=== PATIENT | male | born 2000 | race African-American/Black ===

== ENCOUNTER 2024-12-12 09:34 | Inpatient (IN) | payer MEDICAID, OTHER ==
[~2024-12-12] VITALS: Ht 167.6 cm; Wt 82.5 kg
--- NOTE | 2024-12-12 09:58 | ED.PDOC ---
History of Present Illness HPI Comments 24Y M presents to ED for chief complaint lt facial swelling/pain x4days. Pt state pain and swelling initially began on left side of mouth but now radiates to throat as well. No dental abscess noted. No other symptoms reported. Chief Complaint: Abscess Time Seen by MD: 09:39 Reviewed Notes: Nurses Notes, Medications, Allergies Information Source: Patient Mode of Arrival: Ambulatory Severity: Mild Timing: Days Duration: Since onset Past Medical History PAST MEDICAL HISTORY: Denies Surgical History: Denies all surgeries Family History Family History: Unknown Social History Smoker: Non-Smoker Alcohol: Denies ETOH Use Drugs: Denies Drug Use Lives In: Home Constitutional: denies: chills, diaphoresis, fatigue, fever, malaise, sweats, weakness, others EENTM: reports: mouth pain, mouth swelling (left mandible), throat pain; denies: blurred vision, double vision, ear bleeding, ear discharge, ear drainage, ear pain, ear ringing, eye pain, eye redness, hearing loss, nasal discharge, nose bleeding, nose congestion, nose pain, photophobia, tearing, throat swelling, voice changes, others Respiratory: denies: cough, hemoptysis, orthopnea, SOB at rest, shortness of breath, SOB with excertion, stridor, wheezing, others Cardiovascular: denies: chest pain, dizzy spells, diaphoresis, Dyspnea on exertion, edema, irregular heart beat, left arm pain, lightheadedness, palpitations, PND, syncope, others Gastrointestinal: denies: abdomen distended, abdominal pain, blood streaked bowels, constipated, diarrhea, dysphagia, difficulty swallowing, hematemesis, melena, nausea, poor appetite, poor fluid intake, rectal bleeding, rectal pain, vomiting, others Genitourinary: denies: burning, dysuria, flank pain, frequency, hematuria, incontinence, penile discharge, penile sore, pain, testicle pain, testicle swelling, urgency, others Neurological: denies: dizziness, fainting, headache, left sided numbness, left sided weakness, numbness, paresthesia, pre-existing deficit, right sided numbness, right sided weakness, seizure, speech problems, tingling, tremors, weakness, others Musculoskeletal: denies: back pain, gout, joint pain, joint swelling, muscle pain, muscle stiffness, neck pain, others Integumetry: denies: bruises, change in color, change in hair/nails, dryness, laceration, lesions, lumps, rash, wounds, others Allergic/Immunocompromised: denies: Difficulty Healing, Frequent Infections, Hives, Itching, others Hematologic/Lymphatic: denies: anemia, blood clots, easy bleeding, easy bruising, swollen glands, others Endocrine: denies: excessive hunger, excessive sweating, excessive thirst, excessive urination, flushing, intolerance to cold, intolerance to heat, unexplained weight gain, unexplained weight loss, others Psychiatric: denies: anxiety, bipolar disorder, depression, hopeless, panic disorder, schizophrenia, sleepless, suicidal, others All Other Systems: Reviewed and Negative Physical Exam General Appearance: No Apparent Distress, Normal HEENT: Pharynx Normal, TMs Normal, NOT DONE (left mandibular swelling, no dental abscess) Neck: Full Range of Motion, Non-Tender, Normal, Normal Inspection Respiratory: Chest Non-Tender, Lungs Clear, No Accessory Muscle Use, No Respiratory Distress, Normal Breath Sounds Cardiovascular: No Edema, No JVD, No Murmur, No Gallop, Normal Peripheral Pulses, Regular Rate/Rhythm Breast Exam: Deferred Gastrointestinal: No Organomegaly, Non Tender, No Pulsatile Mass, Normal Bowel Sounds, Soft Genitalia: Deferred Pelvic: Deferred Rectal: Deferred Extremities: No calf tenderness, Normal capillary refill, Normal inspection, Normal range of motion, Non-tender, No pedal edema Musculoskeletal : Apperance: Normal Neurologic: Alert, roll repairer II-XII nml as Tested, No Motor Deficits, Normal Affect, Normal Mood, No Sensory Deficits Cerebellar Function: Normal Reflexes: Normal Skin: Dry, Normal Color, Warm Lymphatic: No Adenopathy Was a procedure done? Was a procedure done?: No Differential Dx Considerations may include: facial cellulitis, facial abscess, dental abscess, parotid mass, parotiditis, mandibular fracture, contusion, antonio's angina X-Ray, Labs, Meds, VS Vital Signs Date Time Temp Pulse Resp B/P (MAP) Pulse Ox O2 Delivery O2 Flow Rate FiO2 12/12/24 10:35 73 16 98 Room Air 12/12/24 10:35 99.6 73 16 146/92 (110) 98 99.6 12/12/24 09:50 99.6 73 16 146/92 (110) 98 Lab Test 1/18/25 09:54 Range/Units White Blood Count 5.8 4.4-10.8 10^3/uL Red Blood Count 4.66 4.5-5.90 10^6/uL Hemoglobin 15.6 13.5-17.5 g/dL Hematocrit 45.8 41.0-53.0 % Mean Corpuscular Volume 98.1 80.0-100.0 fL Mean Corpuscular Hemoglobin 33.4 H 28.0-32.0 pg Mean Corpuscular Hemoglobin Concent 34.1 32.0-36.0 g/dL Red Cell Distribution Width 12.1 11.8-14.3 % Platelet Count 347 140-450 10^3/uL Mean Platelet Volume 7.4 6.9-10.8 fL Neutrophils (%) (Auto) 61.8 37.0-80.0 % Lymphocytes (%) (Auto) 22.8 10.0-50.0 % Monocytes (%) (Auto) 12.0 0.0-12.0 % Eosinophils (%) (Auto) 1.9 0.0-7.0 % Basophils (%) (Auto) 1.5 0.0-2.0 % Neutrophils # (Auto) 3.6 1.6-8.6 10 ^3/uL Lymphocytes # (Auto) 1.3 0.4-5.4 10 ^3/uL Monocytes # (Auto) 0.7 0-1.3 10 ^3/uL Eosinophils # (Auto) 0.1 0-0.8 10 ^3/uL Basophils # (Auto) 0.1 0-0.2 10 ^3/uL Nucleated Red Blood Cells 0.3 % Sodium Level 138 136-145 mmol/L Potassium Level 3.8 3.5-5.1 mmol/L Chloride Level 107 98-107 mmol/L Carbon Dioxide Level 26 20-31 mmol/L Anion Gap 5 5-15 Blood Urea Nitrogen 9 9-23 mg/dL Creatinine 1.26 0.700-1.30 mg/dL Glomerular Filtration Rate Calc 82 >90 mL/min BUN/Creatinine Ratio 7.1 L 10.0-20.0 Serum Glucose 88 74-106 mg/dL Calcium Level 10.0 8.7-10.4 mg/dL Current Medications Medications (Trade) Dose Ordered Sig/Emigdio Route Start Time Stop Time Status Last Admin Ceftriaxone Sodium (Rocephin) 1,000 mg ONCE ONCE IM 12/12/24 10:00 12/12/24 10:01 DC 12/12/24 10:09 Ketorolac Tromethamine (Toradol Injection) 15 mg ONCE ONCE IM 12/12/24 10:00 12/12/24 10:01 DC 12/12/24 10:08 [place] [id number] Ph: [phone] DIAGNOSTIC IMAGING Diagnostic Imaging Report : [id number] Signed PATIENT: ANN MARIE GRAFF ACCT: [id number] UNIT: [id number] : 2000 LOC: ER ROOM / BED: / AGE / SEX: 24 / M ADM STATUS: REG ER SERVICE 6 ORDERING PHYSICIAN: RODERICK PRETTY MD PROCEDURE(s): FAC2C - MAXILLOFACIAL WITHOUT REASON: R/O ABCESS ORDER NUMBER(s): [id number], ACCESSION NUMBER(s): [id number] CT MAXILLOFACIAL WITHOUT INDICATION: R/O ABCESS EXAM DATE: 12/12/2024 09:54 AM COMPARISON: None RADIATION DOSE: CTDIvol: 66.95 mGy, DLP: 1580.87 mGy*cm PROCEDURE: CT axial images of the maxillofacial bones are obtained without contrast All CT scans at this medical facility are performed using dose modulation techniques as appropriate to a performed exam including the following: Automated exposure control was utilized; adjustment of the MA and/or KV according to pa tient size; and use of iterative reconstruction technique. FINDINGS: The mastoids are well pneumatized. The paranasal sinuses are well pneumatized. There is no facial region fracture. The orbits and retrobulbar spaces are unremarkable. There is left perimandibular region soft tissue edema and stranding. There is associated extensive left perimandibular edema but no loculated fluid collection identified. Enlarged left submandibular lymph nodes measuring up to 1.9 cm. Submental lymph node measuring 11 mm. This may be odontogenic in origin arising from the left 1st mandibular molar tooth, which demonstrates periapical lucency. Left cervical jugulodigastric lymph nodes measuring up to 1.4 cm. IMPRESSION: 1. Extensive left perimandibular edema and soft tissue stranding, likely representing cellulitis changes. The associated edema could represent phlegmon. No definitive loculated collection identified at this time. This may be odontogenic in origin, arising from the left mandibular 1st molar tooth. 2. Associated neck lymphadenopathy ATED BY: MARIANA ROBERTSON MD DICTATED DATE/TIME: 12/12/24 1019 SIGNED BY: MARIANA ROBERTSON MD SIGNED DATE/TIME: 12/12/24 1019 CC: Time of 1ST Reevaluation: 10:09 Reevaluation 1ST: Unchanged Time of 2ND Reevaluation: 11:08 Reevaluation 2ND: Improved Patient Education/Counseling: Diagnosis, Treatment, Prognosis, Need For Follow Up Family Education/Counseling: No Family Present Additional Information I reviewed the following notes from patient's past medical encounters: None The following tests were ordered, and results were reviewed by me: CBC, BMP, CT maxillofacial WO contrast Additional Information was gathered from interviewing the following independent historians: None I reviewed and agreed with the following test results read by other providers: CT maxillofacial WO contrast I discussed treatment and results with medical personnel. Departure 1 Departure Time of Disposition: 11:08 Impression: Primary Impression: Facial abscess Disposition: ADMITTED INPATIENT Admit to: Med Surg Condition: Stable Discharged With: Self Critical Care Note Critical Care Time?: Yes (55 min-critical care time only) Critical care comment: Due to concerns for patients condition deteriorating, the care required my highest level of attention and readiness to intervene. I assessed the patient, reviewed the medical records, ordered the appropriate tests and treatments, then reassessed for results and responsiveness. I communicated with medical personnel and consultants and formulated a plan of care. Total critical care time excludes any procedures Stability Stability form required: No Heart Score Heart Score: Heart Score Response (Comments) Value History N/A 0 EKG N/A 0 Age N/A 0 Risk Factors N/A 0 Troponin N/A 0 Total 0 I personally scribed for RODERICK PRETTY MD ([email or web address]) on 12/12/24 at 09:57. Electronically submitted by Nikkie Juárez ([email or web address]). I personally scribed for RODERICK PRETTY MD ([email or web address]) on 12/12/24 at 10:23. Electro nically submitted by Nikkie Juárez ([email or web address]). RODERICK PRETTY MD Dec 12, 2024 09:57
[2024-12-12] MEDS: KETOROLAC TROMETH 30 MG/ML 1ML VIAL IM ONE (10:08)
[2024-12-12] MEDS: cefTRIAXone SOD 1,000 MG VL IM ONE (10:09)
[2024-12-12 10:18] LABS: Chloride 107 mmol/L (98-107); Potassium 3.8 mmol/L (3.5-5.1); Sodium 138 mmol/L (136-145)
[2024-12-12 10:19] LABS: Anion Gap 5 (5-15); Carbon Dioxide 26 mmol/L (20-31)
--- NOTE | 2024-12-12 10:21 | DVH ---
CT MAXILLOFACIAL WITHOUT INDICATION: R/O ABCESS EXAM DATE: 12/12/2024 09:54 AM COMPARISON: None RADIATION DOSE: CTDIvol: 66.95 mGy, DLP: 1580.87 mGy*cm PROCEDURE: CT axial images of the maxillofacial bones are obtained without contrast All CT scans at this medical facility are performed using dose modulation techniques as appropriate t o a performed exam including the following: Automated exposure control was utilized; adjustment of th e MA and/or KV according to patient size; and use of iterative reconstruction technique. FINDINGS: The mastoids are well pneumatized. The paranasal sinuses are well pneumatized. There is no facial region fracture. The orbits and retrobulbar spaces are unremarkable. There is left perimandibular region soft tissue edema and stranding. There is associated extensive le ft perimandibular edema but no loculated fluid collection identified. Enlarged left submandibular lym ph nodes measuring up to 1.9 cm. Submental lymph node measuring 11 mm. This may be odontogenic in [place] gin arising from the left 1st mandibular molar tooth, which demonstrates periapical lucency. Left cervical jugulodigastric lymph nodes measuring up to 1.4 cm. IMPRESSION: 1. Extensive left perimandibular edema and soft tissue stranding, likely representing cellulitis cerna ges. The associated edema could represent phlegmon. No definitive loculated collection identified a t this time. This may be odontogenic in origin, arising from the left mandibular 1st molar tooth. 2. Associated neck lymphadenopathy
[2024-12-12 10:24] LABS: Basophils # (auto) 0.1 10 ^3/uL (0-0.2); Basophils % (auto) 1.5 % (0.0-2.0); Eosinophils # (auto) 0.1 10 ^3/uL (0-0.8); Eosinophils % (auto) 1.9 % (0.0-7.0); Glucose 88 mg/dL (74-106); Hematocrit 45.8 % (41.0-53.0); Hemoglobin 15.6 g/dL (13.5-17.5); Lymphocytes # (auto) 1.3 10 ^3/uL (0.4-5.4); Lymphocytes % (auto) 22.8 % (10.0-50.0); Mean Corpuscular Hemoglobin 33.4 pg (28.0-32.0); Mean Corpuscular Hgb Conc. 34.1 g/dL (32.0-36.0); Mean Corpuscular Volume 98.1 fL (80.0-100.0); Monocytes # (auto) 0.7 10 ^3/uL (0-1.3); Neutrophils # (auto) 3.6 10 ^3/uL (1.6-8.6); Neutrophils % (auto) 61.8 % (37.0-80.0); Nucleated Red Blood Cells % 0.3 %; Platelet Count (auto) 347 10^3/uL (140-450); Red Blood Cells 4.66 10^6/uL (4.5-5.90); Red Cell Distribution Width 12.1 % (11.8-14.3); White Blood Cell 5.8 10^3/uL (4.4-10.8)
[2024-12-12 10:25] LABS: BUN/Creatinine Ratio 7.1 (10.0-20.0)
[2024-12-12 10:31] LABS: Blood Urea Nitrogen 9 mg/dL (9-23)
[2024-12-12] MEDS ORDERED: ACETAMINOPHEN 325 MG TAB PO PRN (11:45)
[2024-12-12] MEDS ORDERED: VANCOMYCIN PER PHARMACY 0 MG IV SCH (11:45)
--- NOTE | 2024-12-12 12:32 | DVHHP2 ---
History of Present Illness Reason for Visit: Left-sided facial swelling History of Present Illness Lauren Francois is a 24-year-old male with no past medical history who presents to the ED for left-sided facial jaw swelling and throat pain x2 days. Patient reports that he went 2 weeks ago to his dentist was told that he needed to get a root canal but unable to proceed due to insurance issues. Patient states that there is mild throat pain but notice his left side face and jaw was swollen today. Patient denies any tooth pain, denies chest pain, shortness of breath, fever, chills, lightheadedness, dizziness, weakness, abdominal pain, nausea, vomiting, and diarrhea Past Surgical History: None Family History: None Smoke: No ALCOHOL: none Drugs: None Lives: Alone Domestic Violence: Neg Review of Systems Constitutional: No: Fever, Chills, Sweats, Weakness, Malaise, Other Eyes: No: Pain, Vision change, Conjunctivae inflammation, Eyelid inflammation, Other, Redness ENT: Throat pain; No: Ear pain, Ear discharge, Nose pain, Nose discharge, Nose congestion, Mouth pain, Mouth swelling, Throat swelling, Other Respiratory: No: Cough, Dry, Shortness of breath, SOB with excertion, Wheezing, Hemoptysis, Pleuritic Pain, Sputum, Wheezing, Other Cardiovascular: No: Chest Pain, Palpitations, Orthopnea, Paroxysmal Noc. Dyspnea, Edema, Lt Headedness, Other Gastrointestinal: No: Nausea, Vomiting, Abdominal Pain, Diarrhea, Constipation, Melena, Hematochezia, Other Genitourinary: No Dysuria, No Frequency, No Incontinence, No Hematuria, No R etention, No Other Musculoskeletal: No: other, neck pain, shoulder pain, arm pain, back pain, hand pain, leg pain, foot pain Skin: Other (Left-sided facial swelling); No: Rash, Lesions, Jaundice, Bruising Neurological: No: Weakness, Numbness, Incoordination, Change in speech, Confusion, Seizures, Other Allergies: Coded Allergies: NO KNOWN ALLERGIES (Unverified , 12/12/24) Exam Vital Signs Vital Signs Date Time Temp Pulse Resp B/P (MAP) Pulse Ox O2 Delivery O2 Flow Rate FiO2 12/12/24 10:35 73 16 98 Room Air 12/12/24 10:35 99.6 146/92 (110) 99.6 General Appearance: Alert, Oriented X3, Cooperative, No acute distress HEENT: Atraumatic, PERRLA, EOMI, Mucous membr. moist/pink Respiratory: Clear to auscultation, Normal air movement Cardiovascular: Regular rate, Normal S1, Normal S2, No murmurs Abdominal: Normal bowel sounds, Soft, No tenderness, No hepatospenomegaly, No masses Extremities: No clubbing, No cyanosis, No edema, Normal pulses, No tenderness/swelling Skin: No rashes Neuro: Normal gait, Strength at 5/5 X4 ext, Normal tone, Sensation intact Psych/Mental Status: Mental status NL, Mood NL Labs/Xrays Labs Test 12/12/24 09:54 Range/Units White Blood Count 5.8 4.4-10.8 10^3/uL Red Blood Count 4.66 4.5-5.90 10^6/uL Hemoglobin 15.6 13.5-17.5 g/dL Hematocrit 45.8 41.0-53.0 % Mean Corpuscular Volume 98.1 80.0-100.0 fL Mean Corpuscular Hemoglobin 33.4 H 28.0-32.0 pg Mean Corpuscular Hemoglobin Concent 34.1 32.0-36.0 g/dL Red Cell Distribution Width 12.1 11.8-14.3 % Platelet Count 347 140-450 10^3/uL Mean Platelet Volume 7.4 6.9-10.8 fL Neutrophils (%) (Auto) 61.8 37.0-80.0 % Lymphocytes (%) (Auto) 22.8 10.0-50.0 % Monocytes (%) (Auto) 12.0 0.0-12.0 % Eosinophils (%) (Auto) 1.9 0.0-7.0 % Basophils (%) (Auto) 1.5 0.0-2.0 % Neutrophils # (Auto) 3.6 1.6-8.6 10 ^3/uL Lymphocytes # (Auto) 1.3 0.4-5.4 10 ^3/uL Monocytes # (Auto) 0.7 0-1.3 10 ^3/uL Eosinophils # (Auto) 0.1 0-0.8 10 ^3/uL Basophils # (Auto) 0.1 0-0.2 10 ^3/uL Nucleated Red Blood Cells 0.3 % Sodium Level 138 136-145 mmol/L Potassium Level 3.8 3.5-5.1 mmol/L Chloride Level 107 98-107 mmol/L Carbon Dioxide Level 26 20-31 mmol/L Anion Gap 5 5-15 Blood Urea Nitrogen 9 9-23 mg/dL Creatinine 1.26 0.700-1.30 mg/dL Glomerular Filtration Rate Calc 82 >90 mL/min BUN/Creatinine Ratio 7.1 L 10.0-20.0 Serum Glucose 88 74-106 mg/dL Calcium Level 10.0 8.7-10.4 mg/dL CT MAXILLOFACIAL WITHOUT INDICATION: R/O ABCESS EXAM DATE: 12/12/2024 09:54 AM COMPARISON: None RADIATION DOSE: CTDIvol: 66.95 mGy, DLP: 1580.87 mGy*cm PROCEDURE: CT axial images of the maxillofacial bones are obtained without contrast All CT scans at this medical facility are performed using dose modulation techniques as appropriate to a performed exam including the following: Automated exposure control was utilized; adjustment of the MA and/or KV according to patient size; and use of iterative reconstruction technique. FINDINGS: The mastoids are well pneumatized. The paranasal sinuses are well pneumatized. There is no facial region fracture. The orbits and retrobulbar spaces are unremarkable. There is left perimandibular region soft tissue edema and stranding. There is associated extensive left perimandibular edema but no loculated fluid collection identified. Enlarged left submandibular lymph nodes measuring up to 1.9 cm. Submental lymph node measuring 11 mm. This may be odontogenic in origin arising from the left 1st mandibular molar tooth, which demonstrates periapical lucency. Left cervical jugulodigastric lymph nodes measuring up to 1.4 cm. IMPRESSION: 1. Extensive left perimandibular edema and soft tissue stranding, likely representing cellulitis changes. The associated edema could represent phlegmon. No definitive loculated collection identified at this time. This may be odo ntogenic in origin, arising from the left mandibular 1st molar tooth. 2. Associated neck lymphadenopathy Exam: US SOFT TISSUE NECK Clinical History: Left neck swelling Comparison: None Technique: Targeted sonographic evaluation of the soft tissues of the left neck was obtained utilizing grayscale and color Doppler imaging. Findings/Impression: There is no evidence for drainable collection. There is no evidence for solid or cystic mass in the site. No vascular abnormalities identified at this site. Technically difficult exam. Assessment/Plan Assessment/Plan Assessment/Plan: Localized swelling on the face likely due to Tooth abscess Left side Neck lymphadenopathy Left perimandibular edema Lab Pain management IV antibiotics-ceftriaxone+ vancomycin A.m. labs CT maxillofacial Ultrasound neck Antiemetics FEN/PPX Diet Hep-Lock DVT prophylaxis not indicated patient ambulating PUD prophylaxis not indicated no history of GERD or GI bleed Discussed plan of care with patient and nurse No home medications reconciled Admit patient to [facility] surge Plan discussed with: Patient My Orders Orders - FIORELLA SERRATO Procedure Category Date Status Time Ceftriaxone Ivpb PHA 12/13/24 Verified Rocephin 09:00 Vancomycin Per PHA 12/12/24 Verified Pharmacy 11:45 Admit ADMIT 12/12/24 Verified 11:33 Allergies STEVEN 12/12/24 Verified 11:33 Code Status CODE 12/12/24 Verified 11:33 Hydrocodone-Acet PHA 12/12/24 Verified 5/325mg Tab ([place] 11:45 Ondansetron Hcl PHA 12/12/24 Verified (Zofran) 11:45 Complete Blood Count LAB 12/13/24 Verified 04:00 Comprehensive LAB 12/13/24 Verified Metabolic Panel 04:00 Cardiac DIET 12/12/24 Verified Diet-2gna,Lofat,Lochol Lunch Acetaminophen Tablet PHA 12/12/24 Verified (Tylenol Tablet) 11:45 Morphine Sulfate PHA 12/12/24 Verified Injection 11:45 Soft Tissue Neck US 12/12/24 Verified 11:33 Date of Service: Dec 12, 2024 Billing Provider: FIORELLA SERRATO Common Visit Codes: [id number] INP/OBS CARE (HIGH) FIORELLA SERRATO Dec 12, 2024 12:32
--- NOTE | 2024-12-12 12:57 | DVH ---
Exam: US SOFT TISSUE NECK Clinical History: Left neck swelling Comparison: None Technique: Targeted sonographic evaluation of the soft tissues of the left neck was obtained utilizing grayscal e and color Doppler imaging. Findings/Impression: There is no evidence for drainable collection. There is no evidence for solid or cystic mass in the site. No vascular abnormalities identified at this site. Technically difficult exam.
[2024-12-12 14:40] VITALS: PULSE 74; RESP 18; O2SAT 98
[2024-12-12] MEDS: VANCOMYCIN 1.25GM/250ML 250 ML IV SCH (14:41)
[2024-12-12] MEDS: ONDANSETRON HCL 4 MG/2 ML VIAL IV PRN (14:44)
[2024-12-12] MEDS: MORPHINE SULFATE INJ 2 MG/ml SYRG IV PRN (14:45)
[2024-12-12] MEDS: HYDROcodone-ACET 5/325MG TAB PO ONE (15:26)
[2024-12-12] MEDS: HYDROmorphone HCL 2 MG/ML VL/or syr IV ONE (17:44)
[2024-12-12] MEDS: HYDROcodone-ACET 5/325MG TAB PO PRN (21:44)
[2024-12-13 05:09] LABS: Eosinophils # (auto) 0.1 10 ^3/uL (0-0.8); Hemoglobin 15.3 g/dL (13.5-17.5); Mean Corpuscular Hemoglobin 34.2 pg (28.0-32.0); Mean Corpuscular Hgb Conc. 35.4 g/dL (32.0-36.0); Monocytes # (auto) 0.9 10 ^3/uL (0-1.3); Nucleated Red Blood Cells % 0.1 %
[2024-12-13 05:12] LABS: Basophils # (auto) 0.1 10 ^3/uL (0-0.2); Basophils % (auto) 0.7 % (0.0-2.0); Eosinophils % (auto) 1.6 % (0.0-7.0); Hematocrit 43.1 % (41.0-53.0); Lymphocytes % (auto) 24.2 % (10.0-50.0); Mean Corpuscular Volume 96.5 fL (80.0-100.0); Monocytes % (auto) 10.8 % (0.0-12.0); Neutrophils # (auto) 5.1 10 ^3/uL (1.6-8.6); Neutrophils % (auto) 62.7 % (37.0-80.0); Platelet Count (auto) 356 10^3/uL (140-450); Red Blood Cells 4.47 10^6/uL (4.5-5.90); Red Cell Distribution Width 12.4 % (11.8-14.3); White Blood Cell 8.2 10^3/uL (4.4-10.8)
[2024-12-13 05:26] LABS: Alanine Aminotransferase 13 U/L (7-40); Albumin 4.4 g/dL (3.2-4.8); Alkaline Phosphatase 64 U/L (46-116); Anion Gap 10 (5-15); Carbon Dioxide 25 mmol/L (20-31); Chloride 106 mmol/L (98-107); Glucose 82 mg/dL (74-106); Potassium 3.7 mmol/L (3.5-5.1); Sodium 141 mmol/L (136-145)
[2024-12-13 05:27] LABS: Bilirubin, Total 0.7 mg/dL (0.2-1.0)
[2024-12-13 05:53] LABS: Aspartate Aminotransferase 13 U/L (13-40); Blood Urea Nitrogen 7 mg/dL (9-23)
[2024-12-13] MEDS: cefTRIAXone 1GM/50ML D5W 50 ML IV SCH (08:49)
[2024-12-13 09:00] VITALS: BP 110/74; PULSE 74; RESP 16; TEMP 98.7; O2SAT 95
[2024-12-13 09:45] VITALS: BP 111/70; PULSE 89; RESP 18; TEMP 98.3; O2SAT 98
[2024-12-13 13:00] VITALS: BP 111/67; PULSE 74; RESP 18; TEMP 98.4; O2SAT 97
--- NOTE | 2024-12-13 13:56 | DVHPN2 ---
Subjective The patient is seen and examined at bedside. The patient complained of tooth pain. But no fever or chill. Reviewed: Care Plan, H&P, Labs, Medications, Previous Orders, Radiology Changes from previous H/P or p: No Changes Eyes: No Pain, No Vision change, No Conjunctivae inflammation, No Eyelid inflammation, No Other, No Redness ENT: No Ear pain, No Ear discharge, No Nose pain, No Nose discharge, No Nose congestion, No Mouth pain, No Mouth swelling; Throat pain; No Throat swelling, No Other Cardiovascular: No Chest Pain, No Palpitations, No Orthopnea, No Paroxysmal Noc. Dyspnea, No Edema, No Lt Headedness, No Other Respiratory: No Cough, No Dry, No Shortness of breath, No SOB with excertion, No Wheezing, No Hemoptysis, No Pleuritic Pain, No Sputum, No Other Gastrointestinal: No Nausea, No Vomiting, No Abdominal Pain, No Diarrhea, No Constipation, No Melena, No Hematochezia, No Other Genitourinary: No Dysuria, No Frequency, No Incontinence, No Hematuria, No Retention, No Other Musculoskeletal: No other, No neck pain, No shoulder pain, No arm pain, No back pain, No hand pain, No leg pain, No foot pain Skin: No Rash, No Lesions, No Jaundice, No Bruising; Other (Left-sided facial swelling) Objective Vitals Vital Signs Date Time Temp Pulse Resp B/P (MAP) Pulse Ox O2 Delivery O2 Flow Rate FiO2 12/13/24 09:45 98.3 89 18 111/70 (84) 98 98.3 12/13/24 09:35 Room Air* 0 21 General Appearance: Alert, Oriented X3, Cooperative, No acute distress HEENT: Atraumatic, PERRLA, EOMI, Mucous membr. moist/pink, Other (Left upper tooth abscess with pain in the left neck) Neck: Supple Lungs: Clear to auscultation, Normal air movement Cardiovascular: Regular rate, Normal S1, Normal S2, No murmurs, Gallops, Rubs Abdomen: Normal bowel sounds, Soft, No tenderness Neuro: Strength at 5/5 X4 ext Psych/Mental Status: Mental status NL Medications Current Medications Medications Dose Ordered Sig/Emigdio Route Start Time Stop Time Status Last Admin Dose Admin Ceftriaxone Sodium 50 ml @ 100 mls/hr DAILY@09 IV 12/13/24 09:00 12/13/24 08:49 100 MLS/HR Vancomycin HCl 0 ml @ 0 mls/hr UD IV 12/12/24 11:45 Acetaminophen/ Hydrocodone Bitart 1 tab Q4HP PRN PO 12/12/24 11:45 12/13/24 10:40 1 TAB Ondansetron HCl 4 mg Q4HP PRN IV 12/12/24 11:45 12/13/24 01:27 4 MG Acetaminophen 650 mg Q6HP PRN PO 12/12/24 11:45 Morphine Sulfate 2 mg Q4HPRN PRN IV 12/12/24 11:45 12/13/24 01:28 2 MG Vancomycin HCl 250 ml @ 200 mls/hr Q12H IV 12/12/24 14:00 12/13/24 01:41 200 MLS/HR Laboratory Results Laboratory Tests 12/13/24 03:31 Chemistry Test 12/13/24 03:31 Albumin 4.4 g/dL (3.2-4.8) Calcium Level 10.0 mg/dL (8.7-10.4) Total Protein 7.0 g/dL (5.7-8.2) LFT Test 12/13/24 03:31 Alanine Aminotransferase (ALT) 13 U/L (7-40) Alkaline Phosphatase 64 U/L (46-116) Aspartate Amino Transferase (AST) 13 U/L (13-40) Total Bilirubin 0.7 mg/dL (0.2-1.0) Labs and/or images reviewed: Labs reviewed by me Assessment/Plan Assessment/Plan Localized left face swelling likely due to 1st molar tooth abscess Left side neck lymphadenopathy Left perimandibular edema and cellulitis with possible phlegmon Continuing current management with IV antibiotic vancomycin and Rocephin. Continuing with IV pain medication morphine and also [place] for pain control. Advised the patient to see a dentist as outpatient when patient gets discharge. This medical document was created using an electronic medical record system with [employer] direct computerized dictation system. Although this document has been carefully reviewed, there may still be some phonetic and typographical errors. These areas are purely typographical due to imperfections of the software programs, and do not reflect any compromise in the patient's medical care. Plan discussed with: Patient Date of Service: Dec 13, 2024 Billing Provider: CHANEL BELTRAN MD Common Visit Codes: [id number] INP/OBS CARE(HIGH) CHANEL BELTRAN MD Dec 13, 2024 13:56
[2024-12-13 16:56] VITALS: BP 130/69; PULSE 70; RESP 16; TEMP 98; O2SAT 97
[2024-12-13 20:00] VITALS: RESP 18; O2SAT 97
[2024-12-13 21:00] VITALS: BP 115/82; PULSE 82; RESP 17; TEMP 98.7; O2SAT 95
[2024-12-14 01:00] VITALS: BP 119/72; PULSE 73; RESP 18; TEMP 98.2; O2SAT 95
[2024-12-14] MEDS: MELATONIN 5 MG TAB PO ONE (03:49)
[2024-12-14 05:09] VITALS: BP 115/51; PULSE 69; RESP 18; TEMP 98; O2SAT 92
[2024-12-14 07:02] LABS: Basophils # (auto) 0.1 10 ^3/uL (0-0.2); Basophils % (auto) 1.2 % (0.0-2.0); Eosinophils # (auto) 0.1 10 ^3/uL (0-0.8); Eosinophils % (auto) 2.5 % (0.0-7.0); Hematocrit 42.3 % (41.0-53.0); Lymphocytes # (auto) 1.7 10 ^3/uL (0.4-5.4); Lymphocytes % (auto) 29.6 % (10.0-50.0); Mean Corpuscular Hemoglobin 33.7 pg (28.0-32.0); Mean Corpuscular Hgb Conc. 35.3 g/dL (32.0-36.0); Mean Corpuscular Volume 95.4 fL (80.0-100.0); Monocytes # (auto) 0.7 10 ^3/uL (0-1.3); Neutrophils # (auto) 3.1 10 ^3/uL (1.6-8.6); Neutrophils % (auto) 53.7 % (37.0-80.0); Nucleated Red Blood Cells % 0.1 %; Platelet Count (auto) 366 10^3/uL (140-450); Red Blood Cells 4.44 10^6/uL (4.5-5.90); Red Cell Distribution Width 12.1 % (11.8-14.3); White Blood Cell 5.7 10^3/uL (4.4-10.8)
[2024-12-14 07:17] LABS: Chloride 104 mmol/L (98-107); Potassium 3.7 mmol/L (3.5-5.1); Sodium 139 mmol/L (136-145)
[2024-12-14 07:18] LABS: Anion Gap 7 (5-15); Calcium 10.1 mg/dL (8.7-10.4); Carbon Dioxide 28 mmol/L (20-31)
[2024-12-14 07:23] LABS: Glucose 96 mg/dL (74-106)
[2024-12-14 07:27] LABS: BUN/Creatinine Ratio 3.8 (10.0-20.0); Blood Urea Nitrogen < 5 mg/dL (9-23)
[2024-12-14] MEDS ORDERED: IBUP1TAB5 PO (10:44)
[2024-12-14] MEDS ORDERED: CLIN1CAP70 PO (10:44)
--- NOTE | 2024-12-14 10:46 | DVHDS2 ---
Discharge Summary Date of Admission Dec 12, 2024 at 11:33 Date of Discharge: Dec 14, 2024 Labs/Diagnostic Data: Laboratory Results Test 12/14/24 06:40 12/14/24 01:11 12/13/24 03:31 White Blood Count 5.7 10^3/uL (4.4-10.8) Red Blood Count 4.44 10^6/uL (4.5-5.90) Hemoglobin 15.0 g/dL (13.5-17.5) Hematocrit 42.3 % (41.0-53.0) Mean Corpuscular Volume 95.4 fL (80.0-100.0) Mean Corpuscular Hemoglobin 33.7 pg (28.0-32.0) Mean Corpuscular Hemoglobin Concent 35.3 g/dL (32.0-36.0) Red Cell Distribution Width 12.1 % (11.8-14.3) Platelet Count 366 10^3/uL (140-450) Mean Platelet Volume 7.4 fL (6.9-10.8) Neutrophils (%) (Auto) 53.7 % (37.0-80.0) Lymphocytes (%) (Auto) 29.6 % (10.0-50.0) Monocytes (%) (Auto) 13.0 % (0.0-12.0) Eosinophils (%) (Auto) 2.5 % (0.0-7.0) Basophils (%) (Auto) 1.2 % (0.0-2.0) Neutrophils # (Auto) 3.1 10 ^3/uL (1.6-8.6) Lymphocytes # (Auto) 1.7 10 ^3/uL (0.4-5.4) Monocytes # (Auto) 0.7 10 ^3/uL (0-1.3) Eosinophils # (Auto) 0.1 10 ^3/uL (0-0.8) Basophils # (Auto) 0.1 10 ^3/uL (0-0.2) Nucleated Red Blood Cells 0.1 % Sodium Level 139 mmol/L (136-145) Potassium Level 3.7 mmol/L (3.5-5.1) Chloride Level 104 mmol/L (98-107) Carbon Dioxide Level 28 mmol/L (20-31) Anion Gap 7 (5-15) Blood Urea Nitrogen < 5 mg/dL (9-23) Creatinine 1.30 mg/dL (0.700-1.30) Glomerular Filtration Rate Calc 79 mL/min (>90) BUN/Creatinine Ratio 3.8 (10.0-20.0) Serum Glucose 96 mg/dL (74-106) Calcium Level 10.1 mg/dL (8.7-10.4) Vancomycin Level Trough 10.8 ug/mL (5-10) Total Bilirubin 0.7 mg/dL (0.2-1.0) Aspartate Amino Transferase (AST) 13 U/L (13-40) Alanine Aminotransferase (ALT) 13 U/L (7-40) Alkaline Phosphatase 64 U/L (46-116) Total Protein 7.0 g/dL (5.7-8.2) Albumin 4.4 g/dL (3.2-4.8) Other Laboratory Tests 12/14/24 06:40 Brief Hx & Hospital Course: Final diagnoses: Dental abscess Left facial cellulitis 24-year-old male was admitted for left facial swelling and pain due to a dental abscess from the 1st molar tooth He was given IV antibiotics overnight He is doing better now The swelling and pain is better He will be discharged home on clindamycin for 10 days The patient will need to see his dentist as soon as possible Take ibuprofen p.r.n. for pain Stable for discharge Condition at Discharge: Stable Final Diagnosis/Problems List Dental abscess Facial cellulitis Discharge Disposition: Home SNF Discharge Will this Physician continue t: No Discharge Instruct/Medications Diet: Regular Activity: No Restrictions, As Tolerated Follow Up/Referral: Dental appointment as soon as possible Medications: Clindamycin 300 mg 3 times a day for 10 days and ibuprofen as needed Discharge Statement: "Patient was advised to return to the ER or call 911 if any headaches, dizziness, shortness of breath, chest pain, abdominal pain, bleeding, fevers, or worsening of medical condition. Patient was counseled about treatment plan, medications, possible side effects, patientverbalized understanding. All questions were answered to the best of my ability. This discharge took greater then 30 minutes in planning, reviewing documentation, counseling the patient, and discussing with other team members." ASSESSMENT ASSESSMENT Assessment Dental abscess Facial cellulitis Date of Service: Dec 14, 2024 Billing Provider: LINDA MIGUEL MD Common Visit Codes: 85875-GFL/OBS DISCH DAY >30min LINDA MIGUEL MD Dec 14, 2024 10:46
== END 2024-12-14 13:09 | disposition home or self-care (01) | DRG 114 ==
LOC: ER 09:34 → OVERFLOW 11:33 → CENTRAL 12-13 09:54
PROVIDERS: ATTEND Internal Medicine Geriatric Medicine
DX: K04.7 Periapical abscess without sinus (principal); L02.01 Cutaneous abscess of face; L03.211 Cellulitis of face
CPT/HCPCS: 36415; 70486; 76536; 80048; 80053; 80202; 85025; 96372; 99291; G0378; J0696; J1885; J2405